=== PATIENT | female | born 1995 | race Caucasian/White ===

== ENCOUNTER 2021-12-22 16:59 | Emergency (ER) | payer OTHER ==
[~2021-12-22] VITALS: Ht 160 cm; Wt 57.0 kg
[2021-12-22 17:00] VITALS: BP 138/80
[2021-12-22] MEDS ORDERED: ORTH1TAB8 PO (17:46)
[2021-12-22] MEDS ORDERED: EPIP0.3I2 IM (22:13)
[2021-12-22] MEDS ORDERED: CETI10CA2 PO (22:15)
== END 2021-12-22 22:23 | disposition home or self-care (01) ==
LOC: M ED 16:59
DX: L50.9 Urticaria, unspecified (principal); T78.49XA Other allergy, initial encounter

== ENCOUNTER → 2025-06-26 | Outpatient (REF) | payer OTHER ==
[~2025-06-26] MED LIST: ACET-897 PO; CETI10CA2 PO; EPIP0.3I2 IM; ORTH1TAB8 PO; PREN200C PO
== END ==
LOC: M SFHCWAGY 12:54
PROVIDERS: ATTEND Obstetrics & Gynecology
DX: Z36.85 Encounter for antenatal screening for Streptococcus B (principal); Z3A.36 36 weeks gestation of pregnancy

== ENCOUNTER 2025-06-30 12:39 | Emergency (ER) | payer OTHER ==
[~2025-06-30] VITALS: Ht 157.5 cm; Wt 65.9 kg
[2025-06-30] MEDS ORDERED: MULTTAB20 PO (13:10)
[2025-06-30 16:40] VITALS: BP 115/69; TEMP 100.7; O2SAT 96
[2025-06-30] MEDS: ACETAMINOPHEN 500 MG TAB PO ONE (17:00)
[2025-06-30] MEDS ORDERED: OSEL75CA PO (17:15)
[2025-06-30] MEDS: OSELTAMIVIR PHOSPHATE 75 MG CAP PO ONE (17:36)
== END 2025-06-30 17:37 | disposition home or self-care (01) ==
LOC: M ED 12:39
DX: O98.513 Other viral diseases complicating pregnancy, third trimester (principal); Z3A.36 36 weeks gestation of pregnancy